=== PATIENT | male | born 2000 | race Caucasian/White ===

== ENCOUNTER 2023-02-01 02:11 | Emergency (ER) | payer OTHER ==
[~2023-02-01] VITALS: Ht 182.9 cm; Wt 89.8 kg
[2023-02-01 02:17] VITALS: O2SAT 98
[2023-02-01] MEDS ORDERED: BACITRACIN ZINC OINT UDPKT TOP ONE (02:30)
[2023-02-01] MEDS ORDERED: IBUP-2029 PO (03:30)
[2023-02-01] MEDS ORDERED: BO1 TP (03:30)
[2023-02-01] MEDS ORDERED: LIDOCAINE HCL/PF 1% 2ML VIAL INFIL ONE (04:45)
[2023-02-01] MEDS ORDERED: LIDOCAINE HCL/PF 1% 10 MG/ML 5ML VIAL INFIL NR (05:30)
[2023-02-01 05:54] VITALS: BP 122/84; PULSE 82; RESP 16; TEMP 98.3
== END 2023-02-01 06:21 | disposition home or self-care (01) ==
LOC: ER 02:11
DX: S01.01XA Laceration without foreign body of scalp, initial encounter (principal); Y04.0XXA Assault by unarmed brawl or fight, initial encounter; Y93.89 Activity, other specified; Y92.89 Other specified places as the place of occurrence of the external cause; Y99.8 Other external cause status
CPT/HCPCS: 12001; 99284; J3490